=== PATIENT | female | born 1985 | race Caucasian/White ===

== ENCOUNTER 2021-02-04 18:59 | Emergency (ER) | payer OTHER ==
[~2021-02-04 18:59] MED LIST: Bacitracin 1 PK ONE
[2021-02-04] MEDS ORDERED: Bupivacaine HCl 0.5%/Epinephrine 1:200,000/PF 30 ml Vial ONE (19:27)
[2021-02-04] MEDS ORDERED: Boostrix 0.5 ML (Tdap) VIAL ONE (19:51)
[2021-02-04] MEDS ORDERED: Cephalexin 250 MG CAP ONE (19:51)
== END 2021-02-04 20:08 | disposition home or self-care (01) ==
LOC: BURERS 18:59
DX: S91.312A Laceration without foreign body, left foot, initial encounter (principal); Z23 Encounter for immunization; W22.8XXA Striking against or struck by other objects, initial encounter
CPT/HCPCS: 12001; 90471; 90715

== ENCOUNTER 2021-02-28 13:29 | Emergency (ER) | payer OTHER ==
[2021-02-28] MEDS ORDERED: Ibuprofen 800 MG TAB ONE (14:30)
== END 2021-02-28 14:33 | disposition home or self-care (01) ==
LOC: BURERS 13:29
DX: S39.012A Strain of muscle, fascia and tendon of lower back, initial encounter (principal); X58.XXXA Exposure to other specified factors, initial encounter
CPT/HCPCS: 99283